=== PATIENT | male | born 1955 ===

== ENCOUNTER 2024-11-21 09:07 | Outpatient (REF) | payer MEDICARE, SELFPAY ==
[2024-11-21 14:36] LABS: HCT 43.7 % (40.0-50.0); HGB 14.8 g/dL (13.5-17.5); MCH 32.2 pg (27.0-33.0); MCHC 33.9 % (32.0-36.0); MCV 95 fL (80-95); MPV 10.7 fL (8.0-11.0); Platelet Count 226 10^3/uL (130-400); RBC 4.59 10^6/uL (4.36-5.78); RDW 13.8 % (11.8-14.1); RDW-SD 48.8 fL; WBC 5.47 10^3/uL (4.4-10.8)
[2024-11-21 15:16] LABS: ALT 25 U/L (16-63); AST 18 U/L (15-37); Albumin 3.8 g/dL (3.4-5.0); Alkaline Phosphatase 66 U/L (46-116); Anion Gap 5.2 mmol/L (3-11); BUN 20 mg/dL (7-18); Bilirubin, Total 0.4 mg/dL (0.2-1.0); CO2 29.8 mmol/L (21.0-32.0); CREATININE 1.3 mg/dL (0.70-1.30); Calcium 8.7 mg/dL (8.5-10.1); Calculated LDL 102 mg/dL (<100); Chloride 110 mmol/L (98-107); Cholesterol 170 mg/dL (<200); Estimated GFR 59.84 (mL/min/1.73m2); Glucose 98 mg/dL (74-106); HDL Cholesterol 55 mg/dL (>or=40); Potassium 3.7 mmol/L (3.5-5.1); Sodium 145 mmol/L (136-145); Total Protein 7.5 g/dL (6.4-8.2); Triglyceride 66 mg/dL (<150)
[2024-11-21 17:32] LABS: Hemoglobin A1C 5.7 % (<5.7)
[2024-11-21 22:35] LABS: PSA, Diagnostic 1.1 ng/mL (<=4.5)
== END 2024-11-21 09:08 | disposition home or self-care (01) ==
LOC: NCHCN 09:07
PROVIDERS: Visit Provider Physician Assistant
DX: I10 Essential (primary) hypertension (principal); N40.1 Benign prostatic hyperplasia with lower urinary tract symptoms; Z13.220 Encounter for screening for lipoid disorders; Z13.1 Encounter for screening for diabetes mellitus
CPT/HCPCS: 80053; 80061; 85027; 83036; 84153